=== PATIENT | female | born 1990 | race Caucasian/White ===

== ENCOUNTER 2021-06-24 17:11 | Outpatient (CLI) | payer OTHER, SELFPAY ==
--- NOTE | ~2021-06-24 | US_ITS ---
US OB <= 14 weeks fetus DATE: 06/24/2021 17:40 INDICATION: Threatened . No heart rate in office. TECHNIQUE: Real-time imaging and Doppler analysis COMPARISON: None FINDINGS: The uterus measures 10.7 cm height, 5.1 cm AP and 8.7 cm transverse dimension. There is a normally shaped intrauterine gestational sac with pole. heart rate of 173 bpm. Thomson-rump length measures 3.09 cm, consistent with 10 weeks +/- 6 days estimated gestational age wit h CHARLIE of 01/20/2022. IMPRESSION: Live single intrauterine gestation Estimated gestational age is 10 weeks +/- 6 days with CHARLIE of 01/20/2022 Reviewed, dictated and finalized at [facility]. Reviewed, dictated and finalized at location A. R SELECTOR
== END 2021-06-24 17:12 | disposition home or self-care (01) ==
LOC: ANHIMG 17:14
PROVIDERS: Visit Provider Obstetrics & Gynecology
DX: O20.0 Threatened abortion (principal); Z3A.10 10 weeks gestation of pregnancy
CPT/HCPCS: 76801

== ENCOUNTER → 2021-08-29 15:12 | Outpatient (CLI) | payer OTHER, SELFPAY ==
--- NOTE | ~2021-08-29 | US_ITS ---
EXAMINATION: US OB /maternal detail DATE: 08/29/2021 16:03 INDICATION: Encounter for supervision of normal . TECHNIQUE: Real-time ultrasound of the pelvis was performed. COMPARISON: Ultrasound 06/24/2021 FINDINGS: There is a single living fetus in vertex presentation. The placenta is posterior, 6.0 cm from the ce rvix. heart rate is 143 beats per minute (bpm). The amniotic fluid volume is subjectively brian l. The cervical length is 3.0 cm on transabdominal images. The following biometric data were obtained: Biparietal diameter (BPD): 4.7 cm; head circumference (HC): 17.2 cm; abdominal circumference (AC): 15 .0 cm; femur length (FL): 3.1 cm. These measurements are concordant. Estimated weight is 324 g +/- 49 g, which correlates with the 76th percentile when 01/20/22 is u sed as estimated date of delivery. As single measurements, these parameters are each equal to the following estimated gestational ages w ith ranges of +/- 2 standard deviations: BPD: 20 weeks 1 days (18 weeks 3 days - 21 weeks 6 days). HC: 19 weeks 6 days (18 weeks 2 days - 21 weeks 2 days). AC: 20 weeks 2 days (18 weeks 1 days - 22 weeks 2 days). FL: 19 weeks 5 days (17 weeks 6 days - 21 weeks 3 days). estimated gestational age based solely on measurements from this exam is 20 weeks 0 days +/- 1 weeks 3 days. The cerebral ventricles, cerebellum, cisterna magna, nuchal fold, lip, and visualized portions of the spine are normal. The heart is normal. The diaphragm, stomach, kidneys, and bladder are normal. Ther e are two umbilical arteries to yield a 3-vessel cord. The cord insertion is normal. IMPRESSION: 1. Single living fetus in vertex presentation. 2. Estimated weight is 324 g +/- 49 g, which correlates with the 76th percentile when 01/20/22 is used as estimated date of delivery. This date was set by ultrasound on 06/24/2021. 3. Normal anatomic survey. 4. Normal cervical length on transabdominal images. Reviewed, dictated and finalized at location A. IMPRESSION: 1. Single living fetus in vertex presentation. 2. Estimated weight is 324 g +/- 49 g, which correlates with the 76th pe rcentile when 01/20/22 is used as estimated date of delivery. This date was set by ultrasound on 06/24/2021. 3. Normal anatomic survey. 4. Normal cervical length on transabdominal images.
== END ==
PROVIDERS: PCP Obstetrics & Gynecology; Visit Provider Obstetrics & Gynecology
DX: Z34.92 Encounter for supervision of normal pregnancy, unspecified, second trimester (principal); Z3A.20 20 weeks gestation of pregnancy
CPT/HCPCS: 76805

== ENCOUNTER 2021-10-07 12:14 | Outpatient (RCR) | payer OTHER, SELFPAY ==
[2021-10-07 12:57] VITALS: BP 102/64; PULSE 94
== END 2022-01-05 23:59 | disposition home or self-care (01) ==
LOC: ANHOBOP 12:14
PROVIDERS: Visit Provider Obstetrics & Gynecology
DX: O36.8190 Decreased fetal movements, unspecified trimester, not applicable or unspecified (principal); Z3A.00 Weeks of gestation of pregnancy not specified
CPT/HCPCS: 59025

== ENCOUNTER 2022-01-16 08:57 | Inpatient (IN) | payer OTHER, SELFPAY ==
[2022-01-16] VITALS (113 sets, daily range): BP systolic 99–134; BP diastolic 70–106; PULSE 71–128; TEMP 36.3–36.8; O2SAT 92–100; BMI 33.0
--- NOTE | 2022-01-16 09:32 | WPDANESEPP ---
Anes - Eval Pre Procedure Procedure: labor epidural Date/Time: 01/16/22 09:32 Surgeon: stephanie Preop Diagnosis: pain during labor Pre Op Diagnosis: Labor Patient Data Age: 31 Gender: F Height: Weight: Allergies Allergy/AdvReac Type Severity Reaction Status Date / Time No Known Allergies Allergy Verified 12/19/21 15:19 Home Medications Medication Instructions Recorded Confirmed Type fluticasone furoate 100 1 inh inhalation DAILY 05/13/21 12/31/21 History mcg-vilanterol 25 mcg/dose inhalation powder (Breo Ellipta) omega 4-jdl-rxb-fish oil 100 cap PO 05/13/21 12/31/21 History mg-160 mg-1,000 mg capsule (Fish Oil) prenat.vits,yohan,wkg-woow-przbp 1 tablet PO DAILY 05/13/21 12/31/21 History Patient hx anesthesia problems: none Family hx anesthesia problems: none Results Review: All pre-operative results and documents have been reviewed as part of the pre-operative evaluation. 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
[2022-01-16 10:17] LABS: Basophils Absolute Auto 0.1 K/mm3 (0.0-0.1); Eosinophils Absolute Auto 0.4 K/mm3 (0-0.3); Hematocrit 37.8 % (37.0-47.0); Hemoglobin 12.3 g/dL (12.0-15.0); Immature Granulocyte Absolute 0.07 K/mm3 (0.00-0.031); Immature Granulocyte Percent A 0.7 % (0-0.5); Lymphocytes Percent Auto 24.5 % (18.3-44.2); Mean Corpuscular HGB Conc 32.5 g/dl (32-36); Mean Corpuscular Hemoglobin 27.3 pg (26-34); Mean Corpuscular Volume 83.8 fl (80-100); Mean Platelet Volume 10.3 fl (7.4-10.4); Monocytes Absolute Auto 0.6 K/mm3 (0.1-0.6); Monocytes Percent Auto 5.8 % (2.6-8.5); Neutrophils Absolute Auto 6.8 K/mm3 (1.3-6.7); Platelet Count Result 289 k/mm3 (150-375); Red Blood Count 4.51 M/mm3 (4.2-5.4); Red Cell Distribution Width 14.2 % (11.5-14.5); White Blood Count 10.6 K/mm3 (4.5-10.0)
[2022-01-16] MEDS: LACTATED RINGERS 1,000 ML 125 ML IV CONT ×2 (11:29→21:14)
[2022-01-16] MEDS: OXYTOCIN 30 UNITS/NS 500 ML 30 UNITS/500 ML BAG 6 UNITS IV CONT (11:33)
--- NOTE | 2022-01-16 12:13 | LDADM ---
This patient, Mesha Tineo, was admitted to Labor/Delivery/Recovery 109 on 01/16/22 at 08:57. Plans for labor, pain management and were discussed with patient. Patient/family oriented to hospital policies and general routines including ID bracelet, bed and alarms, visiting hours, pain management, procedures, bathroom and other care routines, personal items, smoking policy, room service/diet and guest tray routines, security routines, and visiting hours. Patient/Family are encouraged to report perceived risks to care and to ask questions if they do not understand what they are told or what they should do. See OBIX for further documentation.
[2022-01-16] MEDS: AMPICILLIN 2 GM/NS 100 ML 2 GM/100 ML BAG IVPB (13:05)
[2022-01-16] MEDS: AMPICILLIN 1 GM/NS 50 ML 1 GM/50 ML BAG IVPB ×2 (16:58→21:14)
[2022-01-16] MEDS: FAMOTIDINE 20 MG/2 ML VIAL IV PUSH (21:55)
[2022-01-17] VITALS (129 sets, daily range): BP systolic 109–155; BP diastolic 50–134; PULSE 25–227; RESP 14–18; TEMP 35.9–36.7; O2SAT 85–100
[2022-01-17] MEDS: AMPICILLIN 1 GM/NS 50 ML 1 GM/50 ML BAG IVPB ×2 (01:14→05:35)
[2022-01-17] MEDS: ONDANSETRON INJ 4 MG/2 ML VIAL IV PUSH (01:24)
[2022-01-17] MEDS: LACTATED RINGERS 1,000 ML 125 ML IV CONT (05:35)
--- NOTE | 2022-01-17 07:04 | P.PCNOB_ITS ---
OB - Delivery Note Procedure Delivery date: 01/17/22 Induction method: Per Pitocin Protocol Delivery monitor: External FHT and Internal Uterine Route of delivery: Laceration Description: Perineal - 2nd Degree Delivery repair: vicryl Specimen: Yes (placenta) Quantitative Blood Loss (ml): 350 Anesthesia type: Epidural Disposition: Floor [place] Baby Date of : 01/17/22 Time of : 06:41 Weeks of gestation at delivery: 39 (.6) gender: Female Weight (pounds): 8 Weight (ounces): 5 presentation: vertex position: Left Occiput Anterior Placenta delivery description: Expressed Cord Vessel Description: 3 Vessels and Clamped/Cut score one minute: 9 score five minutes: 9 Narrative: Mesha progressed to complete dilation with strong desire to push. She pushed with good maternal effort and delivered the head over intact perineum. She easily delivered the 's shoulders and body without complications. She was instantly placed skin to skin and had spontaneous cry. delayed cord clamping was performed. The bili cord was then clamped and cut a segment of the cord sent collected for cord gases. The remaining cord blood was collected for typing. With Pitocin running and gentle downward traction on the cord, the placenta delivered without complications. Bimanual massage was performed with good uterine tone and minimal bleeding. She was examined and a second- degree perineal laceration was noted. It was repaired in the normal fashion using 2-0 Vicryl. Good hemostasis was noted. Sponge, lap, instrument, and needle counts were correct at the end of the procedure. Mom and baby were left bonding in the birthing suite in stable condition. [facility] Delivery Billing Delivery Delivery: Delivery Charge
[2022-01-17] MEDS: OXYTOCIN 30 UNITS/NS 500 ML 30 UNITS/500 ML BAG 125 UNITS IV CONT (07:15)
[2022-01-17] MEDS: DOCUSATE SODIUM 100 MG CAPSULE PO ×2 (10:10→17:34)
[2022-01-17] MEDS: IBUPROFEN 600 MG TABLET PO ×2 (10:11→17:34)
--- NOTE | 2022-01-17 19:21 | OBPPTRN ---
1647 Patient transferred to post room #282 via W/C. Support person present. Oriented to unit, room, information board, rooming in, admission packet and security measures. Patient verbalizes understanding.
[2022-01-18] VITALS: BP 128/87; PULSE 104; RESP 16; TEMP 36.9
[2022-01-18] MEDS: IBUPROFEN 600 MG TABLET PO ×3 (00:22→19:03)
[2022-01-18 04:25] VITALS: BP 113/88; PULSE 98; RESP 16; TEMP 36.6
[2022-01-18 04:39] LABS: Hematocrit 30.7 % (37.0-47.0); Hemoglobin 9.8 g/dL (12.0-15.0)
--- NOTE | 2022-01-18 07:48 | PM.OBDSVD ---
DS: Admitting Diagnosis Discharge Date 01/18/2022 Admitting Diagnosis OB - DS: Summary OB Procedures : None OB Procedures Intrapartum: Spontaneous Vag Delivery OB Procedures: : None Time Spent with Patient Time attestation: Total time spent providing and/or coordinating discharge services: DS: Data Data Completed and Pending Pending studies at discharge: Pending at discharge 01/17/22 08:11 Surgical [PTH] Routine Labs on day of discharge: Labs from last 24 hours 01/18/22 04:32 Hgb 9.8 L Hct 30.7 L Discharge Plan Discharge Attending physician on discharge: Obed Pinto Discharging Clinician: Obed Pinto Patient Disposition: Home, Self-Care Activity: as tolerated Diet: as tolerated Patient Instructions: Antibiotic Form Stand Alone Forms: General Discharge Information Follow-up/Referrals: Brie Jacobo MD [Physician] - 3 Weeks Discharge Medications: New ibuprofen 600 mg Tablet 600 mg PO Q6H PRN (Reason: Cramping) Qty: 30 0RF Continued Breo Ellipta 100-25 mcg/dose blister with device 1 inh inhalation DAILY prenat.vits,yohan,xxx-sivm-wgemh Tablet 1 tablet PO DAILY Fish Oil 100-160-1,000 mg capsule 1 cap PO 4-12XD Date of admission: 01/16/22 08:57 Primary Care Provider: UNKNOWN,DOCTOR Admitting Provider: Obed Pinto Attending physician on admission: Obed Pinto Condition: Stable
[2022-01-18 09:05] VITALS: BP 128/95; PULSE 102; RESP 18; TEMP 36; O2SAT 98
[2022-01-18 10:00] VITALS: PULSE 102; RESP 18; O2SAT 98
[2022-01-18] MEDS: POLYSACCHARIDE IRON COMPLEX 150 MG CAPSULE PO ×2 (10:00→20:48)
[2022-01-18] MEDS: DOCUSATE SODIUM 100 MG CAPSULE PO ×2 (10:00→20:48)
[2022-01-18] MEDS: WITCH HAZEL 40 PADS 1 PAD TOPICAL (10:00)
[2022-01-18] MEDS: MULTIVIT/MIN/PREN/FOL AC/IRON TABLET 1 TAB PO ×2 (10:00)
[2022-01-18] MEDS: BENZOCAINE 20% AER SPR (*SP) 56 GM CAN 1 SPRAY TOPICAL (10:00)
[2022-01-18] MEDS: ACETAMINOPHEN 325 MG TABLET 650 MG PO ×2 (13:25→20:48)
[2022-01-18 18:50] VITALS: BP 123/84; PULSE 71; RESP 16; TEMP 36.2; O2SAT 99
[2022-01-19 07:35] VITALS: BP 124/92; PULSE 97; RESP 16; TEMP 36.3; O2SAT 98
[2022-01-19 07:53] LABS: Rapid Plasma Reagin Non-Reactive (NonReactive)
[2022-01-19] MEDS: DOCUSATE SODIUM 100 MG CAPSULE PO (08:14)
[2022-01-19] MEDS: MULTIVIT/MIN/PREN/FOL AC/IRON TABLET 1 TAB PO (08:14)
[2022-01-19] MEDS: POLYSACCHARIDE IRON COMPLEX 150 MG CAPSULE PO (08:14)
[2022-01-19] MEDS: IBUPROFEN 600 MG TABLET PO (08:15)
[2022-01-21 10:36] VITALS: BP 136/100; PULSE 94; RESP 18; TEMP 36.7
--- NOTE | 2022-01-27 09:55 | PM.OBDSVD ---
DS: Admitting Diagnosis Discharge Date 01/19/22 Admitting Diagnosis OB - DS: Summary OB Procedures : None OB Procedures Intrapartum: Spontaneous Vag Delivery OB Procedures: : None Time Spent with Patient Time attestation: Total time spent providing and/or coordinating discharge services: DS: Data Data Completed and Pending Completed studies during hospitalization: Pending at discharge 01/17/22 08:11 Surgical [PTH] Routine Discharge Plan Discharge Attending physician on discharge: Obed Pinto Consulting providers: Brie Jacobo ; Jhoana Delgado Discharging Clinician: Obed Pinto Patient Disposition: Home, Self-Care Activity: as tolerated Diet: as tolerated Discharge Instructions: Education: Mom and Baby Guide Given to: Mother Follow-Up: Call your delivering provider's office for an appointment to be seen in: 3 weeks Mom and baby should come to the [facility] for the follow-up appointment. Appointment Date/Time: January 21, 2022 at 10:00 am What to expect at your follow-up visit: Physical Assessment Call [phone] if you are unable to keep your appointment time. BREAST CARE: * Wear a snug supportive bra. * For engorgement discomfort: Breast Feeding: * Apply warm moist washcloths * Express milk as needed to relieve engorgement * Wear loose clothing * For sore nipples: * Identify correct latch-on * Apply warm moist washcloths before and after nursing * Air dry nipples after nursing * May apply Lansinoh cream to nipples EPISIOTOMY/PERINEAL CARE: * Until bleeding stops, use your josias bottle after urinating * Change your pad frequently throughout the day * You may take sitz baths several times a day (fill your bathtub with warm water and soak for 20 minutes.) Do NOT bathe in the water * No tub baths until seen by your physician - You may shower ACTIVITY: * Rest as much as possible. * Do not exercise or lift anything heavier than your baby (such as laundry or other children.) * Avoid stairs or driving as much as possible. * Do not put anything into the vagina. No douching, tampons, or sexual activity until seen by physician. NOTIFY PHYSICIAN IF YOU HAVE ANY QUESTIONS OR IF ANY OF THE FOLLOWING SYMPTOMS OCCUR: * If your episiotomy or incision becomes red, swollen, or more painful than what you have experienced in the hospital. * If your vaginal bleeding becomes foul smelling. * If your vaginal bleeding becomes more heavy than a period or if your bleeding changes from pink to bright red. However, you may pass an occasional walnut-sized clot once or twice for the first week . * If you experience a sharp, shooting pain in you calves. * If you discover a hard, reddened area on your breast or if you experience flu-like symptoms. DIET: * Eat regular, well-balanced meals. * Drink plenty of fluids daily. If , drink to thirst. Stand Alone Forms: General Discharge Information Follow-up/Referrals: Brie Jacobo MD [Physician] - 3 Weeks Discharge Medications: New ibuprofen 600 mg Tablet 600 mg PO Q6H PRN (Reason: Cramping) Qty: 30 0RF Continued Breo Ellipta 100-25 mcg/dose blister with device 1 inh inhalation DAILY prenat.vits,yohan,yet-gjjs-weucr Tablet 1 tablet PO DAILY Fish Oil 100-160-1,000 mg capsule 1 cap PO 4-12XD Date of admission: 01/16/22 08:57 Primary Care Provider: UNKNOWN,DOCTOR Admitting Provider: Obed Pinto Attending physician on admission: Obed Pinto Condition: Stable
== END 2022-01-19 17:05 | disposition home or self-care (01) | DRG 807 ==
LOC: ANHLDR 09:19 → ANHOB2 01-17 18:04
PROVIDERS: Obstetrics & Gynecology; Admitting Provider Obstetrics & Gynecology; Visit Provider Obstetrics & Gynecology
DX: O42.92 Full-term premature rupture of membranes, unspecified as to length of time between rupture and onset of labor (principal); Z37.0 Single live birth; O76 Abnormality in fetal heart rate and rhythm complicating labor and delivery; O70.1 Second degree perineal laceration during delivery; Z3A.39 39 weeks gestation of pregnancy
CPT/HCPCS: 36415; 85014; 85018; 85025; 86592; 86850; 86900; 86901; 88307; A9270; J0290; J2405; J2590; J2795; J7120

== ENCOUNTER 2023-06-29 13:49 | Observation (INO) | payer BC, SELFPAY ==
--- NOTE | ~2023-06-29 | US_ITS ---
EXAMINATION: US OB limited DATE: 06/29/2023 16:20 INDICATION: Spotting and cramping during early third trimester . Assess cervical length and amniotic fluid index TECHNIQUE: Real-time ultrasound of the pelvis was performed UTILIZING BOTH TRANSABDOMINAL AND TRANSVAGINAL PROBES. The interpreting radiologist was not present for the study. COMPARISON: None. FINDINGS: There is a single living fetus in breech presentation. The placenta is anterior and not low-lying. No evident subchorionic hematoma. Cervical length measures 3.8 cm and without funneling which is normal. heart rate is 143 beats per minute (bpm). The amniotic fluid index is cm, which is normal. Normal amniotic fluid index of 13.9 cm (5th%-95%: 9.7-22.3 cm at 26 weeks estimated gestational age) IMPRESSION: 1. Single living fetus in breech presentation with heart rate of 143 bpm. 2. Normal amniotic fluid index of 13.9 cm. 3. Normal cervical length of 3.8 cm. Reviewed, dictated and finalized at location A. ER MECHANIC MTDChun IMPRESSION: 1. Single living fetus in breech presentation with heart rate of 143 bpm . 2. Normal amniotic fluid index of 13.9 cm. 3. Normal cervical length of 3.8 cm.
[2023-06-29 14:16] VITALS: BP 108/73; PULSE 95
[2023-06-29 14:20] VITALS: BMI 27.7
--- NOTE | 2023-06-29 14:20 | OBADM ---
This patient, Mesha Tineo, admitted to the OB room OB Post 116 for observation. Patient/family oriented to hospital policies and general routines including ID bracelet, bed and alarms, visiting hours, pain management, procedures, bathroom and other care routines, personal items, smoking policy, room service/diet, and visiting hours. Patient/Family are encouraged to report perceived risks to care and to ask questions if they do not understand what they are told or what they should do.
[2023-06-29 15:13] LABS: Appearance Urine Clear (Clear); Bacteria Urine Rare /hpf; Bilirubin Urine Negative (Negative); Blood Urine Negative (Negative); Color Urine Yellow (Yellow); Glucose Urine UA Negative (Negative); Ketones Urine Negative (Negative); Leukocyte Esterase Ur 1+ LEU/UL (Negative); Nitrate Urine Negative (Negative); Non Pathogenic Casts 0-2; Protein Urine Negative (Negative); RBC Urine 0-2 /hpf (0-2); Specific Grav Ur 1.008 (1.001-1.035); Squamous Epithelial Cell Urine Occasional /hpf (Few); Urobilinogen Urine 0.2 mg/dL (<2.0)
[2023-06-29 15:14] LABS: Add Urine Microscopic? YES
--- NOTE | 2023-06-29 15:35 | PC.NURSE ---
Dr. Jacobo notified of patient complaints of spotting, no spotting at this moment, feels great movement. Orders received to send patient to ultrasound.
--- NOTE | 2023-06-29 16:20 | PC.NURSE ---
Dr. quezada notified of US results, okay to discharge
--- NOTE | 2023-06-30 09:46 | P.PNOB_ITS ---
OB - Triage/Final Diagnosis Visit Information Comments/Additional reasons for admission: I have assessed the risk for this patient, Mesha Tineo, and determined that she would benefit from observation care. Evaluation Laboratory results: Laboratory Tests 06/29/23 14:05 Urine Color Yellow Urine Appearance Clear Urine pH 7.0 Ur Specific [place] 1.008 Urine Protein Negative Urine Glucose (UA) Negative Urine Ketones Negative Ur Blood (Man) Negative Urine Nitrate Negative Urine Bilirubin Negative Urine Urobilinogen 0.2 Leukocyte Esterase Rfl 1+ H Urine RBC 0-2 Urine WBC 11-20 H Ur Squamous Epith Cells Occasional Urine Bacteria Rare Urine Casts 0-2 Vital signs: Vital Signs - 24 hr 06/29/23 14:16 06/29/23 14:20 Pulse Rate 95 Blood Pressure 108/73 Oxygen Delivery Room Air Final Diagnosis (1) Vaginal bleeding during : Code(s): O46.90 - Antepartum hemorrhage, unspecified, unspecified trimester Status: Acute
== END 2023-06-29 16:25 | disposition home or self-care (01) ==
PROVIDERS: Admitting Provider Obstetrics & Gynecology; Visit Provider Obstetrics & Gynecology
DX: O46.92 Antepartum hemorrhage, unspecified, second trimester (principal); Z3A.17 17 weeks gestation of pregnancy
CPT/HCPCS: 76815; 76817; 81001; 87086; G0378; G0379

== ENCOUNTER 2023-07-08 08:32 | Outpatient (CLI) | payer BC, SELFPAY ==
[2023-07-08 12:49] LABS: Glucose 1 Hour PP 50gm Dose 148 mg/dL
[2023-07-08 12:51] LABS: Basophils Absolute Auto 0.1 K/mm3 (0.0-0.1); Basophils Percent Auto 0.8 % (0.2-1.2); Eosinophils Absolute Auto 0.6 K/mm3 (0-0.3); Eosinophils Percent Auto 6.4 % (0-4.4); Hematocrit 35.5 % (37.0-47.0); Hemoglobin 11.4 g/dL (12.0-15.0); Immature Granulocyte Absolute 0.06 K/mm3 (0.00-0.031); Immature Granulocyte Percent A 0.7 % (0-0.5); Lymphocytes Absolute Auto 1.98 K/mm3 (0.9-3.2); Lymphocytes Percent Auto 22.2 % (18.3-44.2); Mean Corpuscular HGB Conc 32.1 g/dl (32-36); Mean Corpuscular Hemoglobin 28.9 pg (26-34); Mean Corpuscular Volume 89.9 fl (80-100); Monocytes Absolute Auto 0.4 K/mm3 (0.1-0.6); Neutrophils Absolute Auto 5.9 K/mm3 (1.3-6.7); Neutrophils Percent Auto 65.9 % (45.5-73.1); Platelet Count Result 225 k/mm3 (150-375); Red Blood Count 3.95 M/mm3 (4.2-5.4); Red Cell Distribution Width 13.2 % (11.5-14.5); White Blood Count 8.9 K/mm3 (4.5-10.0)
[2023-07-08 13:36] LABS: HIV 1/2 Ab P24 Ag Result Negative (Negative)
== END 2023-07-08 08:33 | disposition home or self-care (01) ==
LOC: ANHGOSHLAB 08:33
PROVIDERS: Visit Provider Obstetrics & Gynecology
DX: Z34.02 Encounter for supervision of normal first pregnancy, second trimester (principal); Z3A.00 Weeks of gestation of pregnancy not specified
CPT/HCPCS: 36415; 82947; 85025; 86703; G0432

== ENCOUNTER 2023-07-13 08:18 | Outpatient (CLI) | payer BC, SELFPAY ==
[2023-07-13 13:33] LABS: Glucose 1 Hour Gest 166 mg/dL (>/=180)
[2023-07-13 13:42] LABS: Glucose 3 Hour Gest 107 mg/dL (>/=140)
[2023-07-13 13:46] LABS: Glucose 2 Hour Gest 134 mg/dL (>/= 155)
== END 2023-07-13 08:19 | disposition home or self-care (01) ==
LOC: ANHGOSHLAB 08:19
PROVIDERS: Visit Provider Obstetrics & Gynecology
DX: Z34.90 Encounter for supervision of normal pregnancy, unspecified, unspecified trimester (principal)
CPT/HCPCS: 36415; 82951; 82952

== ENCOUNTER 2023-09-15 11:27 | Inpatient (IN) | payer BC, SELFPAY ==
[2023-09-15] VITALS (106 sets, daily range): BP systolic 104–138; BP diastolic 73–100; PULSE 78–119; TEMP 36.2–37.3; O2SAT 93–100; BMI 30.5
[2023-09-15] MEDS: miSOPROStol 25 MCG TABLET SUBLINGUAL (12:48)
--- NOTE | 2023-09-15 12:50 | LDADM ---
This patient, Mesha Tineo, was admitted to Labor/Delivery/Recovery 107 on 09/15/23 at 11:27. Plans for labor, pain management and were discussed with patient. Patient/family oriented to hospital policies and general routines including ID bracelet, bed and alarms, visiting hours, pain management, procedures, bathroom and other care routines, personal items, smoking policy, room service/diet and guest tray routines, security routines, and visiting hours. Patient/Family are encouraged to report perceived risks to care and to ask questions if they do not understand what they are told or what they should do. See OBIX for further documentation.
[2023-09-15 12:56] LABS: Basophils Absolute Auto 0.1 K/mm3 (0.0-0.1); Basophils Percent Auto 0.7 % (0.2-1.2); Eosinophils Absolute Auto 0.2 K/mm3 (0-0.3); Eosinophils Percent Auto 1.7 % (0-4.4); Hematocrit 36.2 % (37.0-47.0); Hemoglobin 11.5 g/dL (12.0-15.0); Immature Granulocyte Absolute 0.07 K/mm3 (0.00-0.031); Immature Granulocyte Percent A 0.6 % (0-0.5); Lymphocytes Absolute Auto 2.46 K/mm3 (0.9-3.2); Lymphocytes Percent Auto 21.4 % (18.3-44.2); Mean Corpuscular HGB Conc 31.8 g/dl (32-36); Mean Platelet Volume 11.2 fl (7.4-10.4); Monocytes Absolute Auto 0.5 K/mm3 (0.1-0.6); Neutrophils Absolute Auto 8.3 K/mm3 (1.3-6.7); Neutrophils Percent Auto 71.6 % (45.5-73.1); Platelet Count Result 280 k/mm3 (150-375); Red Blood Count 4.26 M/mm3 (4.2-5.4); White Blood Count 11.5 K/mm3 (4.5-10.0)
[2023-09-15 13:01] LABS: Creatinine Urine 37.5 mg/dL; Total Protein Urine Random 23 mg/dL; Ur Ttl Prot Creatinine Ratio 0.61 mg/mg (0-0.20)
[2023-09-15 13:28] LABS: Alanine Aminotransferase 16 U/L (6-35); Albumin Level 3.8 g/dL (3.5-5.1); Alkaline Phosphatase 158 U/L (38-126); Anion Gap 8 mmol/L (4-12); Aspartate Amino Transferase 20 U/L (14-36); Bilirubin,Total 0.4 mg/dL (0.2-1.3); Blood Urea Nitrogen 10 mg/dL (7-17); Carbon Dioxide 19 mmol/L (22-30); Chloride 109 mmol/L (98-107); Estimated CRCL calculation 124 ml/min; Estimated Glomerular Filt Rate > 60; Glucose 150 mg/dL (65-110); Potassium 3.7 mmol/L (3.4-5.0); Sodium 136 mmol/L (137-145); Uric Acid 3.9 mg/dL (2.5-7.5)
--- NOTE | 2023-09-15 13:34 | WPDANESEPP ---
Anes - Eval Pre Procedure Procedure: labor epidural Date/Time: 09/15/23 13:34 Surgeon: lisa Jacobo Preop Diagnosis: Pain during labor Pre Op Diagnosis: IOL Patient Data Age: 32 Gender: F Height: 1.68 m Weight: 85.9 kg Last Vital Signs Pulse 119 H 09/15/23 13:30 BP 123/78 09/15/23 13:30 Allergies Allergy/AdvReac Type Severity Reaction Status Date / Time No Known Allergies Allergy Verified 09/15/23 10:19 Home Medications Medication Instructions Recorded Confirmed Type omega 3-wgs-thk-fish oil 100 1 cap PO 4-12XD 05/13/21 09/15/23 History mg-160 mg-1,000 mg capsule (Fish Oil) prenat.vits,yohan,ynj-pqao-ojnpn 1 tablet PO DAILY 05/13/21 09/15/23 History albuterol sulfate 90 mcg/actuation 2 inh inhalation Q4H PRN shortness 07/21/23 09/15/23 Rx aerosol inhaler of breath or wheezing #8.5 grams fluticasone 250 mcg-salmeterol 50 1 inh inhalation BID #60 ea 07/21/23 09/15/23 Rx mcg/dose blistr powdr for inhalation (Advair Diskus) esomeprazole magnesium 20 mg 20 mg PO DAILY #90 caps 08/30/23 09/15/23 Rx capsule,delayed release (Nexium) cetirizine 10 mg tablet (Zyrtec) 10 mg PO DAILY 09/15/23 09/15/23 History Laboratory Tests 09/15/23 09/15/23 09/15/23 12:18 12:39 12:40 WBC 11.5 H K/mm3 (4.5-10.0) RBC 4.26 M/mm3 (4.2-5.4) Hgb 11.5 L g/dL (12.0-15.0) Hct 36.2 L % (37.0-47.0) MCV 85.0 fl (80-100) MCH 27.0 pg (26-34) MCHC 31.8 L g/dl (32-36) RDW 14.0 % (11.5-14.5) Plt Count 280 k/mm3 (150-375) MPV 11.2 H fl (7.4-10.4) Immature Gran % (Auto) 0.6 H % (0-0.5) Neut % (Auto) 71.6 % (45.5-73.1) Lymph % (Auto) 21.4 % (18.3-44.2) [place] % (Auto) 4.0 % (2.6-8.5) Eos % (Auto) 1.7 % (0-4.4) Baso % (Auto) 0.7 % (0.2-1.2) Lymph # (Auto) 2.46 K/mm3 (0.9-3.2) [place] # (Auto) 0.5 K/mm3 (0.1-0.6) Eos # (Auto) 0.2 K/mm3 (0-0.3) Baso # (Auto) 0.1 K/mm3 (0.0-0.1) Abs Immat Gran (auto) 0.07 H K/mm3 (0.00-0.031) Absolute Neuts (auto) 8.3 H K/mm3 (1.3-6.7) Absolute Nucleated RBC 0.000 K/mm3 (0.0-0.012) Nucleated RBC % 0.0 % (0.0-0.2) Sodium 136 L mmol/L (137-145) Potassium 3.7 mmol/L (3.4-5.0) Chloride 109 H mmol/L (98-107) Carbon Dioxide 19 L mmol/L (22-30) Anion Gap 8 mmol/L (4-12) BUN 10 mg/dL (7-17) Creatinine 0.60 L mg/dL (0.7-1.0) Estim Creat Clear Calc 124 ml/min Estimated GFR > 60 (59 - ) Glucose 150 H mg/dL (65-110) Uric Acid Cancelled Calcium Total Bilirubin AST ALT Alkaline Phosphatase Total Protein Albumin U Random Total Protein 23 mg/dL Urine Creatinine 37.5 mg/dL Protein/Creat Ratio 2 Pending RPR Pending 09/15/23 12:40 WBC RBC Hgb Hct MCV MCH MCHC RDW Plt Count MPV Immature Gran % (Auto) Neut % (Auto) Lymph % (Auto) [place] % (Auto) Eos % (Auto) Baso % (Auto) Lymph # (Auto) [place] # (Auto) Eos # (Auto) Baso # (Auto) Abs Immat Gran (auto) Absolute Neuts (auto) Absolute Nucleated RBC Nucleated RBC % Sodium Potassium Chloride Carbon Dioxide Anion Gap BUN Creatinine Estim Creat Clear Calc Estimated GFR Glucose Uric Acid 3.9 mg/dL (2.5-7.5) Calcium 9.0 mg/dL (8.4-10.2) Total Bilirubin 0.4 mg/dL (0.2-1.3) AST 20 U/L (14-36) ALT 16 U/L (6-35) Alkaline Phosphatase 158 H U/L (38-126) Total Protein
--- NOTE | 2023-09-15 13:56 | PM.IMHP ---
H&P: HPI History of Present Illness Date/Time: 09/15/23 13:56 Chief Complaint: pre-eclampsia Narrative: Mesha is a 32yo @ 38.0wks who presented to routine OB care today and was found to have mildly elevated BPs. She has a cold, but also reports a headache that has not resolved since Wednesday. She denies any other symptoms. She reports good movement. No contractions, VB or LOF Her is complicated by: - h/o leep - Asthma - Pre-eclampsia; P/C of 0.61 Review of Systems Constitutional: Constitutional: Denies chills, Denies fever(s) and Denies headache(s) Eyes: Eyes: Denies change in vision ENT: Denies headache(s) Cardiovascular: Cardiovascular: Denies chest pain and Denies dyspnea Respiratory: Respiratory: Denies dyspnea Genitourinary: Genitourinary: Denies abnormal vaginal bleeding and Denies vaginal discharge Neurologic: Denies headache(s) Psychiatric: Psychiatric: Denies anxiety and Denies depression [facility] Past Medical History Medical History Abnormal Pap smear of cervix 2012, LGSIL [employer] 2020 Endometrial polyp Removed History of LEEP (loop electrosurgical excision procedure) of cervix complicating 2016 History of miscarriage, currently Surgical History Surgical History History of colposcopy 06/13/12, LGSIL Family History Family History Mother Asthma Father Diabetes mellitus Sibling Asthma Grandparent Diabetes mellitus Social History Social History Smoking status: Never smoker Second hand tobacco smoke exposure: No Alcohol intake: never Substance use: never Substance use type: does not use Do You Feel Safe in your Home?: Yes Lack of Transportation: No Lack of Food: Never True Current Housing: I Have Housing Concerned About Future Housing: No Difficulty Paying Gas/Electric Bills: No Difficulty Paying for Meds: No Currently Unemployed: No Education: Trade/Vocational Certificate Difficulty w/ Childcare or Family Care: No Living arrangements: with family Additional living arrangements comments: 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 Gender identity (if verbalized by the patient): Female Sexual Orientation (if Verbalized by the Patient): Straight or Heterosexual Spiritual care concerns: No Meds Home Medications and Allergies Home Medications Medication Instructions Recorded Confirmed Type omega 0-yvb-tku-fish oil 100 1 cap PO 4-12XD 05/13/21 09/15/23 History mg-160 mg-1,000 mg capsule (Fish Oil) prenat.vits,yohan,bsi-wjkr-dacir 1 tablet PO DAILY 05/13/21 09/15/23 History albuterol sulfate 90 mcg/actuation 2 inh inhalation Q4H PRN shortness 07/21/23 09/15/23 Rx aerosol inhaler of breath or wheezing #8.5 grams fluticasone 250 mcg-salmeterol 50 1 inh inhalation BID #60 ea 07/21/23 09/15/23 Rx mcg/dose blistr powdr for inhalation (Advair Diskus) esomeprazole magnesium 20 mg 20 mg PO DAILY #90 caps 08/30/23 09/15/23 Rx capsule,delayed release (Nexium) cetirizine 10 mg tablet (Zyrtec) 10 mg PO DAILY 09/15/23 09/15/23 History Allergies Allergy/AdvReac Type Severity Reaction Status Date / Time No Known Allergies Allergy Verified 09/15/23 10:19 Vital Signs Vital Signs - 24 hr 09/15/23 12:11 09/15/23 12:15 09/15/23 12:45 Temperature Pulse Rate 104 H 115 H 109 H Blood Pressure 117/81 113/91 H 138/97 H 09/15/23 13:00 09/15/23 13:15 09/15/23 13:30 Temperature Pulse Rate 111 H 117 H 119 H Blood Pressure 129/88 122/87 123/78 09/15/23 13:39 09/15/23 13:45 Temperature 97.6 F Pulse Rate 103 H Blood Pressure 124/94 H Exam Const: Gene
[2023-09-15 15:21] LABS: Rapid Plasma Reagin Non-Reactive (NonReactive)
--- NOTE | 2023-09-15 18:09 | PM.OBPNLAB ---
Pain Control Date/time seen: 09/15/23 18:09 Pain control: tolerating well Pelvic Exam Dilation (cm): 2 Effacement (%): 60 station: -2 Amniotic membrane status: Ruptured (AROM, clear 1805) Contractions Monitor mode: External Contraction frequency: 6 Contraction pattern: Irregular Status status: Category l Assessment and Plan Assessment: induction ongoing Plan: begin patient augmentation (low dose pitocin)
[2023-09-15] MEDS: LACTATED RINGERS 1,000 ML 125 ML IV CONT ×2 (18:33→20:33)
[2023-09-16] VITALS (130 sets, daily range): BP systolic 93–131; BP diastolic 54–99; PULSE 30–189; RESP 16–20; TEMP 36.2–37.7; O2SAT 73–100
[2023-09-16] MEDS: ONDANSETRON INJ 4 MG/2 ML VIAL IV PUSH (02:00)
[2023-09-16] MEDS: LACTATED RINGERS 1,000 ML 125 ML IV CONT (02:34)
[2023-09-16] MEDS: OXYTOCIN 30 UNITS/NS 500 ML 30 UNITS/500 ML BAG 125 UNITS IV CONT (06:34)
--- NOTE | 2023-09-16 06:42 | PM.OBPRVD ---
OB - Vaginal Delivery Note Procedure Delivery date: 09/16/23 Events: Preeclampsia w/o severe features Induction method: Per Misoprostol Protocol Delivery augmentation: Rupture of Membranes and Pitocin Delivery monitor: External FHT and Internal Uterine Route of delivery: Episiotomy description: None Laceration Description: Perineal - 1st Degree Delivery repair: vicryl Specimen: Yes (placenta) Quantitative Blood Loss (ml): 300 Anesthesia type: Epidural Disposition: Floor Complications: No immediate complications Baby Date of : 09/16/23 Time of : 06:09 Weeks of gestation at delivery: 38 (1) gender: Male presentation: vertex Placenta delivery description: Expressed Cord Vessel Description: 3 Vessels and Delayed Cord Clamping score one minute: 8 score five minutes: 9 Narrative: Mesha progressed to complete dilation with desire to push. She pushed with good maternal effort for two contractions and delivered the head over intact perineum. No nuchal cord was palpated. She easily delivered his shoulders and body without complication. He was immediately placed skin to skin with spontaneous cry. The pediatric nurse bulb suctioned his mouth and nose. Delayed cord clamping was performed. The umbilical cord was then doubly clamped and cut. A segment of the cord was collected for cord gases. The remaining cord blood was collected for typing. With pitocin running and gentle downward traction on the cord, the placenta delivered without complication. Brisk bleeding was noted, bimanual exam was performed and good uterine tone was noted and the bleeding significantly slowed. She was examined and a small first degree perineal laceration was identified. It was repaired using 2-0 Vicryl and good hemostasis was noted. Sponge, lap, instrument, and needle counts were correct at the end. Mom and baby were left bonding in the birthing suite in a stable condition.
[2023-09-16] MEDS: FLUTICASONE/SALMETEROL 115-21 MCG INHALER 1 PUFF 2 PUFF INHALATION ×2 (07:09→21:20)
--- NOTE | 2023-09-16 09:10 | OBPPTRN ---
Patient transferred to post room # 277 via wheelchair. Support person present. Oriented to unit, room, information board, rooming in, admission packet and security measures. Patient verbalizes understanding.
[2023-09-16] MEDS: IBUPROFEN 600 MG TABLET PO ×3 (09:44→21:44)
[2023-09-16] MEDS: LORATADINE 10 MG TABLET PO (09:48)
[2023-09-16] MEDS: PANTOPRAZOLE 40 MG TABLET PO (09:48)
[2023-09-16] MEDS: MULTIVIT/MIN/PREN/FOL AC/IRON TABLET 1 TAB PO (09:48)
--- NOTE | 2023-09-16 15:19 | PC.NURSE ---
1500 - Introductions were made, then consulted with patient to assess needs related to . Discussed with mother her?plans to feed?her infant, the?experience so far with latching, pumping (without pain using her personal Spectra 2) and supplementing. Resources provided for inpatient with name written on the communication board. Mother voiced understanding of information and will call if there is a request for assistance.
[2023-09-16] MEDS: ACETAMINOPHEN 325 MG TABLET 650 MG PO ×2 (16:01→21:44)
--- NOTE | 2023-09-16 22:49 | PC.NURSE ---
Patient reported that someone from respiratory came and administered 2 puffs of her Advair inhaler around 1999.
[2023-09-17 04:37] VITALS: BP 126/99; PULSE 95; RESP 18; TEMP 36.4; O2SAT 99
[2023-09-17] MEDS: ACETAMINOPHEN 325 MG TABLET 650 MG PO (04:39)
[2023-09-17] MEDS: IBUPROFEN 600 MG TABLET PO ×2 (04:40→11:18)
[2023-09-17 05:27] LABS: Hematocrit 32.4 % (37.0-47.0); Hemoglobin 10.5 g/dL (12.0-15.0); Mean Corpuscular HGB Conc 32.4 g/dl (32-36); Mean Corpuscular Hemoglobin 27.4 pg (26-34); Mean Corpuscular Volume 84.6 fl (80-100); Mean Platelet Volume 11.3 fl (7.4-10.4); Platelet Count Result 236 k/mm3 (150-375); Red Blood Count 3.83 M/mm3 (4.2-5.4); Red Cell Distribution Width 13.8 % (11.5-14.5); White Blood Count 7.7 K/mm3 (4.5-10.0)
[2023-09-17 07:35] VITALS: BP 111/93; PULSE 99; RESP 16; TEMP 36.3; O2SAT 98
[2023-09-17] MEDS: FLUTICASONE/SALMETEROL 115-21 MCG INHALER 1 PUFF 2 PUFF INHALATION (08:51)
[2023-09-17] MEDS: MULTIVIT/MIN/PREN/FOL AC/IRON TABLET 1 TAB PO (08:54)
[2023-09-17] MEDS: LORATADINE 10 MG TABLET PO (08:54)
[2023-09-17] MEDS: PANTOPRAZOLE 40 MG TABLET PO (08:54)
[2023-09-17] MEDS: DOCUSATE SODIUM 100 MG CAPSULE PO (08:54)
--- NOTE | 2023-09-17 10:30 | PM.OBPNVD ---
OB - PN: Subj Subjective Date/time seen: 09/17/23 10:30 Narrative: PPD#1 Mesha reports doing well today. 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 Her pain is controlled. She is tolerating regular diet, voiding, passing gas, and ambulating without issues. She is breast feeding. She would like her son circumcised. OB - PN: Obj Data Labs 09/17/23 04:57 09/15/23 12:40 Labs: Laboratory Results - last 24 hr 09/17/23 04:57 WBC 7.7 RBC 3.83 L Hgb 10.5 L Hct 32.4 L MCV 84.6 MCH 27.4 MCHC 32.4 RDW 13.8 Plt Count 236 MPV 11.3 H OB - PN A/P Assessment and Plan (1) Normal vaginal delivery of second : Code(s): O80 - Encounter for full-term uncomplicated delivery Status: Acute (2) Pre-eclampsia: Code(s): O14.90 - Unspecified pre-eclampsia, unspecified trimester Status: Acute Plan day: 1 Plan: routine care and discharge home (this afternoon) Comments: - will start labetalol 200mg BID - Pelvic rest; take meds as prescribed - ER return precautions: fever, n/v/abd pain, bleeding, HTN Time Spent With Patient Time: Total time spent is greater than 50% in coordination of care (as documented) at patient's floor/unit and/or counseling patient: Review of Systems Constitutional: Constitutional: Denies chills, Denies fever(s) and Denies headache(s) Eyes: Eyes: Denies change in vision ENT: Denies dizziness and Denies headache(s) Cardiovascular: Cardiovascular: Denies chest pain, Denies palpitations and Denies dyspnea Respiratory: Respiratory: Denies cough and Denies dyspnea Gastrointestinal: Gastrointestinal: Denies nausea and Denies vomiting Neurologic: Denies dizziness and Denies headache(s) Endocrine: Endocrine: Denies palpitations Exam Const: General: cooperative, comfortable and no acute distress Orientation/consciousness: patient oriented x3 Resp: Effort & Inspection: normal respiratory effort Auscultation: clear to auscultation bilaterally Cardio: Rate: regular rate GI: Inspection: non-distended GI Palp: No abdominal tenderness and Yes Soft to palpation Auscultation: normal bowel sounds : Other: fundus firm Skin: General skin exam: normal color Neuro: General: patient oriented x3 Extrem: General: normal to inspection Psych: Appearance: grossly normal Affect: normal affect Attitude: cooperative
--- NOTE | 2023-09-17 10:33 | PM.OBDSVD ---
DS: Admitting Diagnosis Discharge Date 09/17/23 Admitting Diagnosis Pre-eclampsia DS: Discharge Diagnosis Discharge Diagnosis (1) Normal vaginal delivery of second : Code(s): O80 - Encounter for full-term uncomplicated delivery Status: Acute (2) Pre-eclampsia: Code(s): O14.90 - Unspecified pre-eclampsia, unspecified trimester Status: Acute OB - DS: Summary OB Procedures : PIH Mgmt and Ultrasound OB Procedures Intrapartum: Spontaneous Vag Delivery OB Procedures: : None Peripartum Data Infant Delivery Method: Natural Vaginal Laceration Description: Perineal - 1st Degree Episiotomy description: None complications: none [place] 1: Gender: Male Disposition of : home Status at Discharge Functional status at discharge: independent ambulation Overall status at discharge: patient is back to baseline Time Spent with Patient Time attestation: Total time spent providing and/or coordinating discharge services: Time spent: Less than 30 minutes Exam Const: General: cooperative, healthy appearing, comfortable and no acute distress Orientation/consciousness: patient oriented x3 Resp: Effort & Inspection: normal respiratory effort Auscultation: clear to auscultation bilaterally Cardio: Rate: regular rate GI: Inspection: non-distended GI Palp: No abdominal tenderness and Yes Soft to palpation Auscultation: normal bowel sounds : Other: fundus firm Skin: General skin exam: normal color Neuro: General: patient oriented x3 Extrem: General: normal to inspection Psych: Appearance: grossly normal Affect: normal affect Attitude: cooperative DS: Data Data Completed and Pending Pending studies at discharge: Pending at discharge 09/16/23 06:13 Surgical [PTH] Routine Labs on day of discharge: Labs from last 24 hours 09/17/23 04:57 WBC 7.7 RBC 3.83 L Hgb 10.5 L Hct 32.4 L MCV 84.6 MCH 27.4 MCHC 32.4 RDW 13.8 Plt Count 236 MPV 11.3 H Discharge Plan Discharge Attending physician on discharge: Brie Jacobo Discharging Clinician: Brie Jacobo Anticipated Discharge Date/Time: 09/18/23 16:00 Patient Disposition: Home, Self-Care Activity: may shower and pelvic rest Diet: regular Patient Instructions: Vaginal Delivery (DC) Stand Alone Forms: General Discharge Information Follow-up/Referrals: rBie Jacobo MD [Physician] - 4 Weeks Discharge Medications: New acetaminophen 325 mg Tablet 650 mg PO Q6H PRN (Reason: Mild Pain (1-3) Or Headache) Qty: 60 0RF docusate sodium 100 mg Capsule 100 mg PO BID PRN (Reason: Constipation) Qty: 90 0RF ibuprofen 600 mg Tablet 600 mg PO Q6H PRN (Reason: Cramping) Qty: 40 0RF labetalol 100 mg Tablet 200 mg PO Q12HR 42 Days Qty: 168 0RF Continued prenat.vits,yohan,tze-[id number] Tablet 1 tablet PO DAILY Fish Oil 100-160-1,000 mg capsule 1 cap PO 4-12XD fluticasone propion-salmeterol [Advair Diskus] 250-50 mcg/dose blister with device 1 inh inhalation BID Qty: 60 5RF albuterol sulfate 90 mcg/actuation HFA aerosol inhaler 2 inh inhalation Q4H PRN (Reason: shortness of breath or wheezing) Qty: 8.5 6RF cetirizine [Zyrtec] 10 mg Tablet 10 mg PO DAILY esomeprazole magnesium [Nexium] 20 mg capsule,delayed release(DR/EC) 20 mg PO DAILY Qty: 90 2RF Date of admission: 09/15/23 11:27 Primary Care Provider: PHYSICIAN,GROUND CONTROL APPROACH TECHNICIAN Admitting Provider: Brie Jacobo Attending physician on admission: Brie Jacobo Condition: Stable
[2023-09-17] MEDS: LABETALOL HCL 100 MG TABLET 200 MG PO (11:17)
[2023-09-17 12:15] VITALS: BP 115/90; PULSE 92; RESP 16; TEMP 36.6; O2SAT 100
--- NOTE | 2023-09-17 13:19 | WPDANLDPN2 ---
Anes-Prog Note L&D Date/Time: 09/17/23 13:19 Comfortable throughout: labor and delivery Neuraxial method: epidural Epidural/Spinal procedure site: clean & non-tender Neuro status: Neuro function grossly intact. Cardiovascular status: normal Respiratory status: normal Airway patency: baseline Mental status: baseline Post-Op hydration status: normal Vital Signs: Last Vital Signs Temp 98 F 09/17/23 12:15 Pulse 92 09/17/23 12:15 Resp 16 09/17/23 12:15 BP 115/90 09/17/23 12:15 Pulse Ox 100 09/17/23 12:15 O2 Del Method Room Air 09/15/23 18:10 Pain score (VAS): 0/10 I/O: Intake & Output 09/16/23 09/17/23 09/17/23 23:59 07:59 15:59 Intake Total 240 Balance 240 Post-procedural complaints: none Patient feedback: Patient satisfied with anesthetic care.
--- NOTE | 2023-09-17 15:19 | PC.NURSE ---
1422-2300 Purposefully rounded to assess for service needs. Patient shared she is pumping to bottle feed EBM and is supplementing until milk is to full volume. Mother denies putting infant to breast. Instructions given on cleaning, care, usage, that there should be no pain, pumping schedule for milk production, collection, and storage of human milk. Patient was assessed for correct placement, flange size, to pump for comfort and nipple stretching/stimulation for adequate milk production every 3 hours (8 times in 24 hours) 1-2 times at night. Mother voiced understanding of the education shared along with the feeding sheet, mom/baby guide and the pump handout/CDC guidelines for pumping for additional resource information.
[2023-09-17 15:40] VITALS: BP 117/95; PULSE 93
--- NOTE | 2023-09-17 16:00 | PC.NURSE ---
Patient received instruction on viewing the discharge video Mother & Baby Care, The First Two Weeks . Patient was given the opportunity and encouraged to ask questions. Patient verbalized understanding of information shared and has been given the mother/baby guide for home reference.
[2023-09-20 11:14] VITALS: BP 119/90; PULSE 74; RESP 18; TEMP 36.3; O2SAT 99
== END 2023-09-17 18:04 | disposition home or self-care (01) | DRG 807 ==
LOC: ANHLDR 11:30 → ANHOB2 09-16 09:18
PROVIDERS: Admitting Provider Obstetrics & Gynecology; Visit Provider Obstetrics & Gynecology
DX: O14.94 Unspecified pre-eclampsia, complicating childbirth (principal); Z37.0 Single live birth; Z3A.38 38 weeks gestation of pregnancy; O70.0 First degree perineal laceration during delivery; O99.52 Diseases of the respiratory system complicating childbirth; J45.909 Unspecified asthma, uncomplicated
CPT/HCPCS: 36415; 80053; 82570; 84156; 84550; 85025; 85027; 86592; 86850; 86900; 86901; 88307; 94640; A9270; J2405; J2590; J2795; J7120